=== PATIENT | male | born 1990 | race Two or more races ===

== ENCOUNTER 2023-03-17 00:40 | Emergency (ER) | payer MEDICAID, OTHER ==
[~2023-03-17] VITALS: Ht 182.9 cm; Wt 106.0 kg
[2023-03-17 01:00] VITALS: BP 110/58
== END 2023-03-17 06:52 | disposition left against medical advice (07) ==
LOC: ER 00:40
DX: S90.461A Insect bite (nonvenomous), right great toe, initial encounter (principal); Z53.21 Procedure and treatment not carried out due to patient leaving prior to being seen by health care provider; W57.XXXA Bitten or stung by nonvenomous insect and other nonvenomous arthropods, initial encounter; Y93.89 Activity, other specified; Y92.89 Other specified places as the place of occurrence of the external cause; Y99.8 Other external cause status